=== PATIENT | female | born 1970 | race Caucasian/White ===

== ENCOUNTER → 2020-08-12 10:43 | Outpatient (BNVA) | payer MEDICARE, SELFPAY | PROVIDERS: Family Provider Nurse Practitioner Family; PCP Family Medicine; Visit Provider Family Medicine | DX: Z13.6 Encounter for screening for cardiovascular disorders (principal); G89.29 Other chronic pain; M25.552 Pain in left hip; S46.012A Strain of muscle(s) and tendon(s) of the rotator cuff of left shoulder, initial encounter; F41.8 Other specified anxiety disorders; X58.XXXA Exposure to other specified factors, initial encounter; Z68.21 Body mass index [BMI] 21.0-21.9, adult; F17.211 Nicotine dependence, cigarettes, in remission; Z71.89 Other specified counseling | CPT/HCPCS: 80053; 80061; 80307; 85025 ==

== ENCOUNTER → 2020-08-25 09:10 | Outpatient (BNVA) | payer MEDICARE, SELFPAY | PROVIDERS: Family Provider Nurse Practitioner Family; PCP Family Medicine; Referring Provider Family Medicine; Visit Provider Specialist | DX: M25.512 Pain in left shoulder (principal) | CPT/HCPCS: 73030 ==

== ENCOUNTER 2020-09-01 14:33 | Outpatient (CLI) | payer MEDICARE, SELFPAY ==
--- NOTE | 2020-09-01 | CT_ITS ---
WS: [id number] CT LUMBAR SPINE, noncontrast. HISTORY: LOW BACK PAIN TECHNIQUE: Contiguous 2.5 mm axial imaging are performed. Sagittal and coronal reformats are submitte d and reviewed. All CT scans at [facility] use at least one of these dose optimization te chniques: automated exposure control; mA and/or kV adjustment per patient size (includes targeted exa ms where dose is matched to clinical indication); or iterative reconstruction. IV contrast: None DLP: 1800.22 mGycm COMPARISON: Radiographs 10/18/2016 L5 anterolisthesis by 8 mm with bilateral pars defects at L5. Similar in appearance to the prior stud y from 2017. Moderate narrowing of the L5-S1 disc space. Transverse screws extend through the LEFT il ium and pelvis stabilizing the SI joint. No vertebral body fractures. L1-2: Normal. L2-3: Normal. L3-4: Normal. L4-5: Mild annular disc bulging. Very mild encroachment into the subarticular recesses and foramen. T here is no significant stenosis. L5-S1: Mild to moderate bilateral foraminal narrowing without significant central stenosis. Visualized retroperitoneum is normal. CT/CT lumbar spine wo con* [id number] IMPRESSION: 1. Grade 1 spondylolisthesis of L5 with spondylolysis. Similar appearance to t he prior radiograph from 2017. 2. Mild to moderate bilateral foraminal stenosis at L5-S1. 3. Mild bilateral subarticular recess and foraminal stenosis L4-5. 4. Screw fusion across the LEFT SI joint.
--- NOTE | 2020-09-01 | XR_ITS ---
WS: [id number] LATERAL LUMBAR SPINE: 3 view. Lateral radiographs are performed in upright neutral, flexion and extension to the patient's toleranc e. HISTORY: SPONDYLOLYSIS, LOW BACK PAIN COMPARISON: 10/18/2016 12 mm anterolisthesis of L5 similar to the prior study with bilateral pars defects. With flexion and extension the anterolisthesis does not change significantly. Slight increase in the lumbar lordosis. Also noted are fixation screws over the sacrum. Prior cholecystectomy. XR/XR lumbar spine f/e only [id number] IMPRESSION: 1. Grade 1 anterolisthesis of L5 with no instability. 2. No fractures.
== END 2020-09-01 14:34 | disposition home or self-care (01) ==
PROVIDERS: Family Provider Nurse Practitioner Family; PCP Family Medicine; Visit Provider Nurse Practitioner
DX: M54.5 Low back pain (principal); M43.07 Spondylolysis, lumbosacral region; M48.061 Spinal stenosis, lumbar region without neurogenic claudication
CPT/HCPCS: 72120; 72131

== ENCOUNTER → 2020-09-07 13:10 | Outpatient (BNVA) | payer MEDICARE, SELFPAY | PROVIDERS: Family Provider Nurse Practitioner Family; PCP Family Medicine; Visit Provider Psychiatry & Neurology Psychiatry | DX: F33.2 Major depressive disorder, recurrent severe without psychotic features (principal); F41.1 Generalized anxiety disorder; F43.12 Post-traumatic stress disorder, chronic | CPT/HCPCS: 99204 ==

== ENCOUNTER 2020-09-22 12:46 | Outpatient (CLI) | payer MEDICARE, SELFPAY ==
--- NOTE | 2020-09-22 12:53 | CT_ITS ---
WS: [id number] CT ARTHROGRAM LEFT SHOULDER TECHNIQUE: CT arthrogram with coronal and sagittal reformatted images. CLINICAL INFORMATION: M25.512 - Pain in left shoulder COMPARISON: None. DLP: All CT scans at [facility] use at least one of these dose optimization techniques: automat ed exposure control; mA and/or kV adjustment per patient size (includes targeted exams where dose is matched to clinical indication); or iterative reconstruction. FINDINGS: Distal clavicle is normal in appearance. Normal AC joint. Mild downsloping of the acromion. Normal hu meral head. Normal glenoid. No evidence of Hill-Sachs deformity. Overall decreased volume left should er capsule with blunting of the axillary recess can be seen with adhesive capsulitis. Contrast inject ion within the subscapular recess extending along the subscapularis tendon. Distal undersurface tear involving the supraspinatus measuring approximately 1.6 cm extending from th e insertion. Infraspinatus is normal in appearance. Normal teres minor. Subscapularis appears intact. Normal biceps tendon in the bicipital groove. Normal middle glenohumeral ligament. Normal inferior g lenohumeral ligament Normal biceps labral anchor. Anterior labral tear with inferior extension extending from the 3-6 cloc k position. Periosteum and bony glenoid appear intact. No evidence of bony [place]. No evidence of Hi ll-Sachs deformity. CT/CT shoulder LT w con [id number] IMPRESSION: 1. Normal AC joint. Mild downsloping of the acromion. 2. Distal supraspinatus undersurface tear extending 1.6 cm from the insertion 3. Rotator cuff is otherwise intact. 4. Anterior inferior labral tear 3-6 clock position. Periosteum and bony gleno id appear intact. Recommend correlation with history of anterior dislocation 5. Normal biceps tendon in the bicipital groove. Normal biceps labral anchor. 6. Overall small volume joint capsule with blunting of the axillary recess. Th is can be seen with adhesive capsulitis in appropriate clinical setting.
--- NOTE | 2020-09-22 12:53 | IR_ITS ---
WS: [id number] SHOULDER ARTHROGRAM LEFT Fluoroscopic guided left shoulder arthrogram CLINICAL INFORMATION: M25.512 - Pain in left shoulder COMPARISON: None. PROCEDURE: The procedure including risks, benefits and complications were discussed with the patient, who agreed to proceed. Using sterile technique, the patient was prepped and draped in the usual ster ile fashion. After 1% lidocaine injection using fluoroscopic guidance, a 22-gauge spinal needle was a dvanced into the glenohumeral joint. Approximately 13 ml of a solution containing 10 ml normal saline , 10 ml Omnipaque 300 was administered. No immediate complications. FLUOROSCOPY TIME: 0.9 minutes. IR/IR arthrogram shoulderLT [id number] IMPRESSION: Uncomplicated fluoroscopic-guided left shoulder arthrogram. CT to follow.
[2020-09-22] MEDS: iohexol 300 mg/mL 50 mL Btl INTRA-ARTI (13:32)
== END 2020-09-22 12:47 | disposition home or self-care (01) ==
PROVIDERS: PCP Family Medicine; Visit Provider Specialist
DX: M25.512 Pain in left shoulder (principal); S43.492A Other sprain of left shoulder joint, initial encounter; X58.XXXA Exposure to other specified factors, initial encounter; M75.102 Unspecified rotator cuff tear or rupture of left shoulder, not specified as traumatic
CPT/HCPCS: 23350; 73201; 77002; Q9967

== ENCOUNTER 2020-10-18 08:04 | Outpatient (CLI) | payer MEDICARE, SELFPAY ==
--- NOTE | 2020-10-18 08:26 | US_ITS ---
WS: [id number] RIGHT UPPER QUADRANT ULTRASOUND HISTORY: ELEVATED LIVER FUNCTION COMPARISON: None available. Liver: 12.4 cm in length. Normal size liver. No bile duct dilatation or mass. Gallbladder: Prior cholecystectomy. CBD: 0.4 cm Pancreas: Not well visualized. Right kidney: 9.4 cm in length. Normal size and echogenicity. No hydronephrosis or mass. Aorta and IVC: Unremarkable abdominal aorta and IVC. No ascites. US/US abdomen limited [id number] IMPRESSION: 1. Status post cholecystectomy. 2. Normal liver. 3. Normal common bile duct.
== END 2020-10-18 08:05 | disposition home or self-care (01) ==
LOC: RAD 08:07
PROVIDERS: Visit Provider Family Medicine
DX: R74.8 Abnormal levels of other serum enzymes (principal)
CPT/HCPCS: 76705

== ENCOUNTER → 2020-11-03 10:27 | Outpatient (BNVA) | payer MEDICARE, SELFPAY | PROVIDERS: Family Provider Nurse Practitioner Family; PCP Family Medicine; Visit Provider Psychiatry & Neurology Psychiatry | DX: F43.12 Post-traumatic stress disorder, chronic (principal); F41.1 Generalized anxiety disorder; F33.2 Major depressive disorder, recurrent severe without psychotic features | CPT/HCPCS: 99213 ==

== ENCOUNTER → 2021-01-30 10:04 | Outpatient (BNVA) | payer MEDICARE, SELFPAY | PROVIDERS: Family Provider Nurse Practitioner Family; PCP Family Medicine; Visit Provider Psychiatry & Neurology Psychiatry | DX: F43.12 Post-traumatic stress disorder, chronic (principal); F41.1 Generalized anxiety disorder; F33.2 Major depressive disorder, recurrent severe without psychotic features | CPT/HCPCS: 99213 ==

== ENCOUNTER → 2021-06-16 12:32 | Outpatient (BNVA) | payer MEDICARE, SELFPAY | PROVIDERS: Family Provider Nurse Practitioner Family; PCP Family Medicine; Visit Provider Psychiatry & Neurology Psychiatry | DX: F43.12 Post-traumatic stress disorder, chronic (principal); F41.1 Generalized anxiety disorder; F33.2 Major depressive disorder, recurrent severe without psychotic features | CPT/HCPCS: 99214 ==

== ENCOUNTER → 2021-09-11 12:39 | Outpatient (BNVA) | payer MEDICARE, SELFPAY | PROVIDERS: Family Provider Nurse Practitioner Family; PCP Family Medicine; Visit Provider Psychiatry & Neurology Psychiatry | DX: F43.12 Post-traumatic stress disorder, chronic (principal); F41.1 Generalized anxiety disorder; F33.2 Major depressive disorder, recurrent severe without psychotic features | CPT/HCPCS: 99214 ==

== ENCOUNTER → 2022-03-05 08:29 | Outpatient (BNVA) | payer MEDICARE, OTHER, SELFPAY | PROVIDERS: Family Provider Nurse Practitioner Family; PCP Family Medicine; Visit Provider Family Medicine | DX: F41.8 Other specified anxiety disorders (principal); Z13.6 Encounter for screening for cardiovascular disorders; Z13.29 Encounter for screening for other suspected endocrine disorder; Z79.899 Other long term (current) drug therapy | CPT/HCPCS: 80053; 80061; 84443; 85025 ==

== ENCOUNTER → 2022-09-13 08:49 | Outpatient (BNVA) | payer MEDICARE, SELFPAY | PROVIDERS: Family Provider Nurse Practitioner Family; PCP Family Medicine; Visit Provider Family Medicine | DX: R53.83 Other fatigue (principal); M25.50 Pain in unspecified joint; E55.9 Vitamin D deficiency, unspecified | CPT/HCPCS: 80053; 82306; 84443; 85025; 85651; 86038; 86140; 86200; 86431 ==

== ENCOUNTER 2022-09-19 06:11 | Outpatient (CLI) | payer MEDICARE, SELFPAY ==
--- NOTE | 2022-09-19 06:22 | CT_ITS ---
WS: [id number] CT CERVICAL SPINE TECHNIQUE: Noncontrast CT of the cervical spine with coronal and sagittal reformatted images. CLINICAL INFORMATION: CERVICALGIA COMPARISON: None. DLP: 149.[address] scans at [facility] use at least one of these dose optimization techniques: automated e xposure control; mA and/or kV adjustment per patient size (includes targeted exams where dose is matc hed to clinical indication); or iterative reconstruction. FINDINGS: Straightening with slight reversal of the normal cervical lordosis. Mild spondylitic changes. Normal C1-C2 articulation. Normal dens. C2-C3: Tiny central protrusion. Moderate facet arthropathy. Spinal canal and foramen are patent. C3-C4: Mild disc osteophyte ridging. Moderate facet arthropathy. Spinal canal is patent. Mild LEFT fo raminal narrowing. C4-C5: Tiny central protrusion. Moderate facet arthropathy. Spinal canal and foramen are patent. C5-C6: Tiny central protrusion. Disc osteophytic ridging. Moderate LEFT and no significant RIGHT fora peggy narrowing. Moderate facet arthropathy. Mild central canal stenosis. C6-C7: Disc osteophyte complex with slight effacement of ventral thecal sac. Mild LEFT and no RIGHT f oraminal narrowing. Spinal canal is patent. C7-T1: Spinal canal and foramen are patent. Lung apices are well aerated. Partially visualized neural stimulator. CT/CT cervical spin wo con* [id number] IMPRESSION: 1. Straightening with reversal normal cervical lordosis. 2. Mild central canal stenosis C5-C6. 3. Moderate LEFT bony foraminal narrowing C5-C6. 4. Moderate facet arthropathy throughout the cervical spine.
== END 2022-09-19 06:12 | disposition home or self-care (01) ==
PROVIDERS: PCP Family Medicine; Visit Provider Anesthesiology Pain Medicine
DX: M48.02 Spinal stenosis, cervical region (principal); M54.2 Cervicalgia; M40.50 Lordosis, unspecified, site unspecified; M47.812 Spondylosis without myelopathy or radiculopathy, cervical region; M25.50 Pain in unspecified joint; R53.1 Weakness; R79.89 Other specified abnormal findings of blood chemistry
CPT/HCPCS: 72125; 80074; 82550; 86618; 86664; 86665; 86666; 86757

== ENCOUNTER 2022-10-19 07:05 | Outpatient (CLI) | payer MEDICARE, SELFPAY ==
--- NOTE | 2022-10-19 07:30 | CT_ITS ---
WS: [id number] CT HEAD WITH AND WITHOUT CONTRAST HISTORY: gait instability, generalized weakness TECHNIQUE: Noncontrast 2.5 mm axial images obtained from the vertex to the skull base. Additional angélica ging performed at 2.5 mm axial images status post IV contrast. Bone and soft tissue windows are revie wed. All CT scans at [facility] use at least one of these dose optimization techniques: autom ated exposure control; mA and/or kV adjustment per patient size (includes targeted exams where dose i s matched to clinical indication); or iterative reconstruction. CONTRAST: Omnipaque 350; 100 mL IV. DLP: 1962.98 mGy.cm COMPARISON: None available. No acute intracranial hemorrhage, edema or midline shift. No prior infarct. Ventricles are normal. No hydrocephalus. Artifact through the posterior fossa from the electrodes related to the nerve stimulator. A small por tion of the posterior fossa is not visualized. Post contrast imaging is negative. No masses or vascul ar malformations. Dural venous sinuses are normally enhancing. Visualized grindstone of [place] is unremarkable. Paranasal sinuses as visualized: Clear. Mastoid air cells: Clear. Calvarium and scalp: Intact. CT/CT head wo/w con [id number] IMPRESSION: 1. No acute intracranial hemorrhage or edema. 2. No significant atrophy or volume loss. 3. Posterior fossa is partially obscured by the neural stimulator artifact. No abnormality is identified.
[2022-10-19] MEDS: iohexol 350 mg/mL 500 mL Btl (per mL) IV (07:33)
== END 2022-10-19 07:06 | disposition home or self-care (01) ==
PROVIDERS: PCP Family Medicine; Visit Provider Family Medicine
DX: R26.89 Other abnormalities of gait and mobility (principal); R53.1 Weakness
CPT/HCPCS: 70470; Q9967

== ENCOUNTER 2022-12-11 09:32 | Outpatient (CLI) | payer MEDICARE, SELFPAY ==
--- NOTE | 2022-12-11 09:42 | XRR_ITS ---
PROCEDURE INFORMATION: Exam: XR Cervical Spine Exam date and time: 12/11/2022 9:54 AM Age: 52 years old Clinical indication: Neck pain; Additional info: Cervicalgia, please comment on presence or absence of spinal instability TECHNIQUE: Imaging protocol: Radiologic exam of the cervical spine. Views: 2 or 3 views. COMPARISON: CT cervical spin wo con* [id number] 09/19/2022 6:28 AM FINDINGS: Bones/joints: Neutral lateral and lateral flexion/extension views of the cervical spine were obtained. Alignment is normal with no instability. Vertebral bodies and disc spaces are unremarkable other than minimal anterior hypertrophic changes at C5 and to a lesser extent C4. Posterior elements are grossly normal as visualized. Soft tissues: Neurostimulator leads are seen projecting over the lower occipital region. XR/XR cervical spine fl/ex [id number] IMPRESSION: No acute findings. No instability.
== END 2022-12-11 09:33 | disposition home or self-care (01) ==
PROVIDERS: PCP Family Medicine; Visit Provider Anesthesiology Pain Medicine
DX: M54.2 Cervicalgia (principal)
CPT/HCPCS: 72040

== ENCOUNTER 2023-01-09 14:12 | Outpatient (CLI) | payer MEDICARE, SELFPAY ==
--- NOTE | 2023-01-09 14:21 | MM_ITS ---
WS: [id number] BILATERAL 3D TOMOSYNTHESIS DIGITAL SCREENING MAMMOGRAPHY WITH CAD CLINICAL INFORMATION: SCREENING HISTORY: Screening mammogram. No current complaints. COMPARISON: 2018 TECHNIQUE: Bilateral CC and MLO views. FINDINGS: The breasts are composed of heterogeneous fibroglandular density tissue, which can limit the detectio n of small underlying mass lesions. No suspicious mass, asymmetry, calcifications, or architectural d istortion. No evidence of malignancy. Scattered incidental punctate calcifications bilaterally. Vascu lar calcification. IMPRESSION: MM/[place] [id number] BI-RADS: 2-Benign FOLLOW UP: 1 Year Follow-up Recommend return to annual screening mammography.
== END 2023-01-09 14:13 | disposition home or self-care (01) ==
LOC: MOBLMAM 14:17
PROVIDERS: PCP Family Medicine; Visit Provider Family Medicine
DX: Z12.31 Encounter for screening mammogram for malignant neoplasm of breast (principal)
CPT/HCPCS: 77063; 77067

== ENCOUNTER 2023-11-11 06:00 | Outpatient (CLI) | payer MEDICARE, SELFPAY | END 2023-11-11 06:01 | disposition home or self-care (01) | LOC: RAD 01-05 10:31 | PROVIDERS: PCP Family Medicine; Visit Provider Specialist | DX: M25.811 Other specified joint disorders, right shoulder (principal) | CPT/HCPCS: 99204 ==

== ENCOUNTER → 2023-11-11 11:33 | Outpatient (BNVA) | payer MEDICARE, SELFPAY | PROVIDERS: PCP Family Medicine; Visit Provider Specialist | DX: M25.811 Other specified joint disorders, right shoulder | CPT/HCPCS: 73030 ==

== ENCOUNTER 2023-12-03 13:45 | Outpatient (CLI) | payer MEDICARE, SELFPAY ==
--- NOTE | 2023-12-03 13:45 | IR_ITS ---
WS: [id number] SHOULDER ARTHROGRAM RIGHT Fluoroscopic guided right shoulder arthrogram CLINICAL INFORMATION: right shoulder pain PROCEDURE: The procedure including risks, benefits and complications were discussed with the patient, who agreed to proceed. Using sterile technique, the patient was prepped and draped in the usual ster ile fashion. After 1% lidocaine injection using fluoroscopic guidance, a 22-gauge spinal needle was a dvanced into the glenohumeral joint. Approximately 13 ml of a solution containing 10 ml normal saline , 10 ml Omnipaque 240 was administered. No immediate complications. FLUOROSCOPY TIME: 1min [id number] # of spot films: 3 IR/IR arthrogram shoulderRT [id number] IMPRESSION: Uncomplicated fluoroscopic-guided right shoulder arthrogram. CT to follow.
--- NOTE | 2023-12-03 13:47 | CT_ITS ---
WS: [id number] RIGHT SHOULDER CT ARTHROGRAM TECHNIQUE: RIGHT shoulder CT arthrogram with coronal and sagittal reformatted images. CLINICAL INFORMATION: M25.811 - Other specified joint disorders, right shoulder COMPARISON: Radiograph 11/11/2023 DLP: 280.[address] scans at [facility] use at least one of these dose optimization techniques: automated e xposure control; mA and/or kV adjustment per patient size (includes targeted exams where dose is matc hed to clinical indication); or iterative reconstruction. FINDINGS: Moderate degenerative arthritis AC joint with moderate downsloping acromion. Subacromial s purring. Impingement on the distal supraspinatus. High-grade intrasubstance and undersurface tear inv olving distal supraspinatus with dissecting contrast. No tendon retraction. Contrast extends to the b ursal surface and subacromial and subdeltoid bursa. Infraspinatus appears intact. Normal teres minor. Subscapularis tendon appears intact. Biceps tendon appears intact within the bicipital groove. Intra -articular biceps tendon appears intact. Glenoid labrum appears intact. No acute appearing labral tea rs. Subchondral cystic change involving the greater tuberosity. Partially visualized deep brain stimulator on the public health nurse imaging. Partially visualized RIGHT lung appe ars well aerated. CT/CT shoulder RT w con [id number] IMPRESSION: 1. Moderate degenerative arthritis AC joint with mild downsloping acromion. Im pingement distal supraspinatus with subacromial spurring. 2. Small full-thickness tears involving the distal supraspinatus distally and anteriorly. Undersurface tears with dissecting contrast extending to the subacr omial subdeltoid bursa. No significant tendon retraction. 3. Rotator cuff is otherwise intact. 4. Biceps tendon appears intact within the bicipital groove. 5. Glenoid labrum appears grossly normal. 6. Partially visualized deep brain stimulator.
[2023-12-03] MEDS: iohexol 240 mg/mL 50 mL Btl INTRA-ARTI (14:25)
== END 2023-12-03 13:47 | disposition home or self-care (01) ==
PROVIDERS: PCP Family Medicine; Visit Provider Specialist
DX: M25.511 Pain in right shoulder (principal); M25.811 Other specified joint disorders, right shoulder
CPT/HCPCS: 23350; 73201; 77002; Q9966

== ENCOUNTER 2024-01-16 11:58 | Outpatient (CLI) | payer MEDICARE, SELFPAY | END 2024-01-16 11:59 | disposition home or self-care (01) | LOC: RAD 11:59 | PROVIDERS: PCP Family Medicine; Visit Provider Family Medicine | DX: Z12.31 Encounter for screening mammogram for malignant neoplasm of breast (principal); R92.323 Mammographic fibroglandular density, bilateral breasts; R92.333 Mammographic heterogeneous density, bilateral breasts; R92.1 Mammographic calcification found on diagnostic imaging of breast | CPT/HCPCS: 77063; 77067; 99204 ==

== ENCOUNTER → 2024-02-19 10:04 | Outpatient (BNVA) | payer MEDICARE, SELFPAY | PROVIDERS: PCP Family Medicine; Visit Provider Specialist | DX: Z09 Encounter for follow-up examination after completed treatment for conditions other than malignant neoplasm (principal) | CPT/HCPCS: 99214 ==

== ENCOUNTER → 2024-02-20 13:51 | Outpatient (BNVA) | payer MEDICARE, SELFPAY | PROVIDERS: PCP Family Medicine; Visit Provider Specialist | DX: Z96.89 Presence of other specified functional implants (principal); M54.81 Occipital neuralgia; R26.81 Unsteadiness on feet; G43.711 Chronic migraine without aura, intractable, with status migrainosus; Z96.82 Presence of neurostimulator | CPT/HCPCS: 95983; 99204 ==

== ENCOUNTER → 2024-04-07 13:07 | Outpatient (BNVA) | payer MEDICARE, SELFPAY | PROVIDERS: PCP Family Medicine; Visit Provider Registered Nurse Neonatal Intensive Care | DX: R52 Pain, unspecified; S99.921A Unspecified injury of right foot, initial encounter; X58.XXXA Exposure to other specified factors, initial encounter | CPT/HCPCS: 73610; 73630 ==

== ENCOUNTER → 2024-04-28 10:49 | Outpatient (BNVA) | payer MEDICARE, SELFPAY | PROVIDERS: PCP Family Medicine; Visit Provider Podiatrist Foot & Ankle Surgery | DX: S82.831A Other fracture of upper and lower end of right fibula, initial encounter for closed fracture; W19.XXXA Unspecified fall, initial encounter; Z46.89 Encounter for fitting and adjustment of other specified devices; S82.61XD Displaced fracture of lateral malleolus of right fibula, subsequent encounter for closed fracture with routine healing; X58.XXXD Exposure to other specified factors, subsequent encounter | CPT/HCPCS: 73610; 73630 ==

== ENCOUNTER 2024-04-28 12:13 | Outpatient (CLI) | payer MEDICARE, SELFPAY | END 2024-04-28 12:14 | disposition home or self-care (01) | LOC: SPT 12:14 | PROVIDERS: PCP Family Medicine; Visit Provider Podiatrist Foot & Ankle Surgery | DX: Z46.89 Encounter for fitting and adjustment of other specified devices (principal); S82.61XD Displaced fracture of lateral malleolus of right fibula, subsequent encounter for closed fracture with routine healing; X58.XXXD Exposure to other specified factors, subsequent encounter | CPT/HCPCS: L1902 ==

== ENCOUNTER → 2024-05-20 11:30 | Outpatient (BNVA) | payer MEDICARE, SELFPAY | PROVIDERS: PCP Family Medicine; Visit Provider Podiatrist Foot & Ankle Surgery | DX: S82.831A Other fracture of upper and lower end of right fibula, initial encounter for closed fracture (principal); W19.XXXA Unspecified fall, initial encounter | CPT/HCPCS: 99213 ==

== ENCOUNTER → 2024-08-19 12:37 | Outpatient (BNVA) | payer MEDICARE, SELFPAY | PROVIDERS: PCP Family Medicine; Visit Provider Specialist | DX: G43.711 Chronic migraine without aura, intractable, with status migrainosus (principal); Z96.82 Presence of neurostimulator; R26.81 Unsteadiness on feet | CPT/HCPCS: 99214 ==

== ENCOUNTER → 2024-10-23 10:13 | Outpatient (BNVA) | payer MEDICARE, SELFPAY | PROVIDERS: PCP Family Medicine; Visit Provider Family Medicine | DX: Z13.6 Encounter for screening for cardiovascular disorders (principal) | CPT/HCPCS: 80053; 80061; 85025 ==

== ENCOUNTER → 2024-11-02 09:56 | Outpatient (BNVA) | payer MEDICARE, SELFPAY | PROVIDERS: PCP Family Medicine; Visit Provider Specialist | DX: M19.012 Primary osteoarthritis, left shoulder (principal); M25.811 Other specified joint disorders, right shoulder; S46.012D Strain of muscle(s) and tendon(s) of the rotator cuff of left shoulder, subsequent encounter; X58.XXXD Exposure to other specified factors, subsequent encounter | CPT/HCPCS: 73030; 99214 ==

== ENCOUNTER → 2024-11-25 09:31 | Outpatient (BNVA) | payer MEDICARE, SELFPAY | PROVIDERS: PCP Family Medicine; Visit Provider Specialist | DX: G43.711 Chronic migraine without aura, intractable, with status migrainosus (principal); Z96.82 Presence of neurostimulator; R26.81 Unsteadiness on feet | CPT/HCPCS: 99213 ==

== ENCOUNTER 2024-11-27 08:56 | Outpatient (CLI) | payer MEDICARE, SELFPAY ==
--- NOTE | 2024-11-27 09:00 | IR_ITS ---
WS: [id number] RIGHT SHOULDER ARTHROGRAM UNDER FLUOROSCOPY. PRIOR TO CT EVALUATION. HISTORY: right shoulder pain COMPARISON: None available. FLUOROSCOPY TIME: 1min [id number] # of spot films: 2 Procedure, risks and complications were explained to the patient. Consent has been obtained. Under fluoroscopic guidance the skin is marked over the medial superior third of the humeral head, cleansed with ChloraPrep and anesthetized with lidocaine. 22- gauge spinal needle is inserted to the cortex of the humeral head. Test injection with Omnipaque reveals the needle is appropriately positioned in the joint. Approximately 12 cc of Omnipaque 240 were injected without difficulty into the joint space. Good distention of the joint. IR/IR arthrogram shoulderRT [id number] IMPRESSION: Uncomplicated RIGHT shoulder shoulder joint injection prior to CT.
--- NOTE | 2024-11-27 10:12 | CT_ITS ---
WS: [id number] CT RIGHT SHOULDER ARTHROGRAM HISTORY: M25.811 - Other specified joint disorders, right shoulder Technique: All CT scans at [facility] use at least one of these dose optimization techniques: automated exposure control; mA and/or kV adjustment per patient size (includes targeted exams where dose is matched to clinical indication); or iterative reconstruction. CT is performed post arthrogram injection of the RIGHT shoulder joint. DLP: 250.01 mGy.cm COMPARISON: 12/03/2023 Mild AC joint arthritis. No significant subacromial impingement. Small osteophyte from the distal inferior clavicle with mild encroachment upon the supraspinatus. There is contrast extending from the intra-articular injection through the rotator cuff tear in the distal supraspinatus tendon. Contrast extends through the tendon in an oblique manner towards the acromion. This appears to be in insertion site tear and may have 2 different entry points. This is not a full- thickness tear. There is no muscle atrophy or fatty replacement identified. Subscapularis tendon and the infraspinatus tendons appear intact. No intra-articular loose body. No contrast extending into the labrum. There is a small labral recess involving the superior labrum but no full-thickness tear. Minimal subchondral cystic changes in the humeral head. Visualized RIGHT lung is clear. Right-sided neural stimulator. CT/CT shoulder RT w con [id number] IMPRESSION: 1. Distal supraspinatus tendon tear with articular contrast extending through the tear. The amount of contrast extending external from the joint is less than on the prior study of 12/03/2023. Distal insertion site of the supraspinatus ten don. 2. No additional tendon tears identified. 3. No labral tear. 4. Mild AC joint arthritis.
[2024-11-27] MEDS: iohexol 240 mg/mL 50 mL Btl 20 ML INTRA-ARTI (11:45)
== END 2024-11-27 08:57 | disposition home or self-care (01) ==
LOC: RAD 08:57
PROVIDERS: PCP Family Medicine; Visit Provider Specialist
DX: M25.811 Other specified joint disorders, right shoulder (principal)
CPT/HCPCS: 23350; 73201; 77002; J9999; Q9966

== ENCOUNTER → 2024-12-07 12:24 | Outpatient (BNVA) | payer MEDICARE, SELFPAY | PROVIDERS: PCP Family Medicine; Visit Provider Family Medicine | DX: Z01.818 Encounter for other preprocedural examination (principal) | CPT/HCPCS: 80053; 85007; 85027 ==

== ENCOUNTER 2024-12-17 07:23 | Day surgery (SDC) | payer MEDICARE, SELFPAY ==
[2024-12-17] VITALS (11 sets, daily range): BP systolic 108–124; BP diastolic 70–87; PULSE 79–103; RESP 17–22; TEMP 36.1–36.5; O2SAT 93–100; BMI 24.7
[2024-12-17] MEDS: acetaminophen 1,000 MG/100 ML PIGGYBACK 400 MG IV (08:02)
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
--- NOTE | 2024-12-17 08:41 | W.PM.OPSUD ---
Surgery/Procedure H&P Update DATE OF PROCEDURE: December 17, 2024 DATE H&P PERFORMED: 12/07/24 H&P UPDATE INFORMATION: I have reviewed H&P completed within last 30 days, I have examined patient prior to procedure, No changes to prior documentation, H&P is in [facility] EMR on date indicated and Risks and benefits of the procedure reviewed PLANNED PROCEDURE: Operation Date: 12/17/24 08:40 Proposed Procedures p RIGHT Shoulder Acromioplasty(Right) - Mela Herrera MD s RIGHT Distal Clavicle Resection(Right) - Mela Herrera MD s POSSIBLE Rotator Cuff Repair - Open(Right) - Mela Herrera MD Related Problem List Diagnoses 1. Impingement of right shoulder: 2. Osteoarthritis of right acromioclavicular joint:
[2024-12-17] MEDS: ceFAZolin 2,000 mg SDV 2000 MG IVP (09:03)
[2024-12-17] MEDS: ceFAZolin 1,000 mg SDV 1000 MG IRRIGATION (09:43)
--- NOTE | 2024-12-17 10:19 | PM.OP ---
Operative Report Date of procedure: December 17, 2024 Pre-op diagnosis: Right shoulder impingement with possible rotator cuff tear and with significant acromioclavicular osteoarthritis Post-op diagnosis: Right shoulder rotator cuff tear with impingement, acromioclavicular joint osteoarthritis and bursitis. Post-op findings: See postop diagnosis Procedure done: Right shoulder rotator cuff repair utilizing a Biosteon Enterline 5.5 mm anchor with acromioplasty, distal clavicle resection, and bursectomy. Implants: [employer] Biosteon intra aligned 5.5 mm suture anchor with Force Fiber #2 x 2 Specimens removed/disposition: Bone, disposed of Pathology: None Surgeon: Mela Herrera MD [employer] Duty Manager: Lakeshia Peres, nurse practitioner who services were required for retraction, exposure, closure, and completion of the surgical procedure Anesthesia: General (Intubated, ASA 2 with preoperative interscalene block) Estimated blood loss (mL): 10 IV fluids (mL): 800 Urine output (mL): 0 (No Santillan) Complications: None Findings: As noted above Condition: stable Disposition: PACU (Then return to same-day surgery for discharge to home) Brief History: This 54-year-old woman presented to the office complaining of worsening right shoulder pain. The patient obtain preoperative clearance both from Dr. Gaffney and Dr. Schwarz secondary to a brain stimulator. Preoperatively, discussion was undertaken with the patient. She is able to turn the stimulator on and off, but she did not bring the box with her to do this. It will turn off with a magnet and she was able to confirm that the stimulator turned off prior to beginning the surgical procedure. Risks and complications of surgery were discussed with the patient in the office. Consents were signed and questions were answered. Further question and answer opportunity was given on the morning of surgery. Procedure: The patient was brought to the operating theater and underwent general intubated anesthesia, ASA 2, with preoperative supplemental interscalene block, which was well-tolerated. The patient was placed in a beachchair position and subsequently the right upper extremity was prepped and draped in the usual fashion utilizing DuraPrep. The arm was draped free. A surgical pause was performed prior to commencement of the surgical procedure. At the time of the surgical pause, we confirmed the site and side of surgery as well as administration of appropriate preoperative antibiotics, Ancef 2 g. MRI was also reviewed at that time. Following the surgical pause, an incision was made at approximately the level of the acromioclavicular joint extending across the anterolateral corner of the acromion and distally as necessary. Care was taken to avoid injury to the axillary nerve by limiting the distal extent of the incision. Dissection continued through skin and soft tissues using a scalpel. Hemostasis was obtained using electrocautery. Soft tissues were elevated off the acromion and the acromioclavicular joint. The acromioclavicular joint was exposed. A saw was then used to resect the distal clavicle without difficulty. The undersurface of the clavicle was palpated and was slightly further debrided. A power rasp was used to further smooth the area. When this was felt to be adequately resected, the wound was irrigated. An acromioplasty was then accomplished using a combination of a saw and a power rasp. With this, we were able to remove compression caused by the acromion. The rotator cuff was then evaluated to look for tears. There was noted to be a tear at the attachment point of the supraspinatus which was slightly larger than what was anticipated on the preoperative CT arthrogram. Impingement was significantly improved following the acromioplasty. After the rotator cuff had been thus evaluated, the shoulder was placed through further range of motion to assure there was no evidence of rotator cuff tear. During this time, bursal debridement was also accomplished. After the bursa had been debrided and the remainder of the cuff evaluated, attention was directed to repair of the rotator cuff. This involved placement of a Biosteon Enterline 5.5 mm anchor after the edges of the rotator cuff had been appropriately debrided. A rongeur was also used to prepare the bed prior to placement of the anchor so that reattachment of the rotator cuff would have a better bed to attach to. Additionally, following repair with the anchor, Ethibond was placed over top of the anchor repair therefore completely closing the rotator cuff tear. Attention was then directed to closure. The wound was irrigated and closure was accomplished with 0 Vicryl in the capsular tissues overlying the acromioclavicular joint area as well as over the acromion and down into the deltoid muscle. 3-0 Monocryl was used to close the subcutaneous tissues followed by 4-0 Monocryl subcuticular closure. This was followed by Dermabond, Steri-Strips, Telfa, and Tegaderm. The patient was placed in a slingshot style sling and was returned to the recovery room in satisfactory condition. The patient will be discharged to home to follow-up in office as scheduled. There were no complications and no specimens. Related Problem List Diagnoses 1. Nontraumatic complete tear of right rotator cuff: 2. Impingement of right shoulder: 3. Osteoarthritis of left acromioclavicular joint: 4. Bursitis of shoulder, left:
[2024-12-17] MEDS: oxyCODONE 5 mg IR Tab/Cap PO (12:05)
--- NOTE | 2024-12-17 15:36 | ANE.PACU2 ---
Inpatient post-anesthesia follow up: Airway intact: Yes Vital signs: Temperature 97.3 F Pulse Rate 96 Respiratory Rate 18 Blood Pressure 111/70 Pulse Oximetry 96 Oxygen Delivery Me thod Room Air Oxygen Flow Rate 8 Fraction of Inspir ed Oxygen Hydration adequate: Yes Nausea and vomiting: No Pain level: 1 Mental status: Baseline
== END 2024-12-17 13:20 | disposition home or self-care (01) ==
PROVIDERS: PCP Family Medicine; Visit Provider Specialist
PROC: (CPT 23120; principal; 2024-12-17 08:40)
PROC: (CPT 23130; 2024-12-17 08:40)
PROC: (CPT 23120; 2024-12-17 08:40)
DX: M75.41 Impingement syndrome of right shoulder (principal); M75.101 Unspecified rotator cuff tear or rupture of right shoulder, not specified as traumatic; M19.011 Primary osteoarthritis, right shoulder; M71.9 Bursopathy, unspecified; Z85.42 Personal history of malignant neoplasm of other parts of uterus; Z96.82 Presence of neurostimulator; F41.8 Other specified anxiety disorders; Z87.891 Personal history of nicotine dependence
CPT/HCPCS: 23120; C1713; J0131; J0690; J1100; J2371; J2405; J2704; J2710; J2795; J3010; J3490; J7030; J9999

== ENCOUNTER 2024-12-28 05:00 | Outpatient (RCR) | payer MEDICARE, SELFPAY | END 2025-01-26 23:59 | disposition home or self-care (01) | LOC: GPT 05:00 | PROVIDERS: PCP Family Medicine; Visit Provider Specialist | DX: M75.121 Complete rotator cuff tear or rupture of right shoulder, not specified as traumatic (principal) | CPT/HCPCS: 97161 ==

== ENCOUNTER → 2024-12-30 10:07 | Outpatient (BNVA) | payer MEDICARE, SELFPAY | PROVIDERS: PCP Family Medicine; Visit Provider Specialist | DX: Z98.890 Other specified postprocedural states (principal) | CPT/HCPCS: 99024 ==

== ENCOUNTER → 2025-01-13 14:24 | Outpatient (BNVA) | payer MEDICARE, SELFPAY | PROVIDERS: PCP Family Medicine; Visit Provider Specialist | DX: M25.511 Pain in right shoulder (principal); Z98.890 Other specified postprocedural states; W19.XXXA Unspecified fall, initial encounter | CPT/HCPCS: 73030; 99213 ==

== ENCOUNTER 2025-02-25 14:37 | Outpatient (RCR) | payer MEDICARE, SELFPAY | END 2025-02-26 23:59 | disposition home or self-care (01) | LOC: GPT 14:37 | PROVIDERS: PCP Family Medicine; Visit Provider Specialist | DX: M75.121 Complete rotator cuff tear or rupture of right shoulder, not specified as traumatic (principal) | CPT/HCPCS: 97110; 97112; 97140 ==

== ENCOUNTER 2025-03-23 12:19 | Outpatient (RCR) | payer MEDICARE, SELFPAY | END 2025-03-28 23:59 | disposition home or self-care (01) | LOC: GPT 12:19 | PROVIDERS: PCP Family Medicine; Visit Provider Specialist | DX: M75.121 Complete rotator cuff tear or rupture of right shoulder, not specified as traumatic (principal) | CPT/HCPCS: 97110; 97112; 97140 ==

== ENCOUNTER 2025-04-15 06:58 | Outpatient (RCR) | payer MEDICARE, SELFPAY | END 2025-04-28 23:59 | disposition home or self-care (01) | LOC: GPT 06:58 | PROVIDERS: PCP Family Medicine; Visit Provider Specialist | DX: M75.121 Complete rotator cuff tear or rupture of right shoulder, not specified as traumatic (principal) | CPT/HCPCS: 97110; 97112; 97140 ==